=== PATIENT | male | born 1980 | race Caucasian/White ===

== ENCOUNTER 2025-06-06 16:04 | Emergency (ER) | payer OTHER, SELFPAY ==
[2025-06-06 16:11] VITALS: BP 145/104
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
[2025-06-06 20:07] VITALS: BP 138/80
== END 2025-06-06 20:08 | disposition home or self-care (01) ==
LOC: EMR 16:04
PROVIDERS: EMERGENCY PHYSICIAN Emergency Medicine
DX: S16.1XXA Strain of muscle, fascia and tendon at neck level, initial encounter (principal); S80.01XA Contusion of right knee, initial encounter; V89.2XXA Person injured in unspecified motor-vehicle accident, traffic, initial encounter; Y92.410 Unspecified street and highway as the place of occurrence of the external cause
CPT/HCPCS: 99284; 72125